=== PATIENT | female | born 1960 | race Caucasian/White ===

== ENCOUNTER 2021-05-20 06:31 | Day surgery (SDC) | payer BC, SELFPAY ==
[2021-05-13 12:25] VITALS: BMI 30.2
[2021-05-20 06:38] VITALS: BP 130/72; PULSE 63; RESP 16; TEMP 37.3; O2SAT 95
[2021-05-20] MEDS: Lactated Ringers 1,000 ML 80 ML IVCONT (06:49)
--- NOTE | 2021-05-20 07:30 | HO.ANESPROP2 ---
HPI - Anesthesia Eval Consult details Narrative: 60 F for colonoscopy [facility] Past Medical History Medical History (Updated 05/13/21 @ 12:29 by Evelin Salvador RN) Arthritis Bone spur of left foot Hx of cardiac murmur Hx of skin cancer, basal cell Seasonal allergies Family History Family history of problems with anesthesia: No Surgical History Surgical History (Updated 05/13/21 @ 12:22 by Evelin Salvador RN) History of shoulder surgery Hx of colonoscopy History of Problems with Anesthesia: No Social History Social History Patient Tobacco Use Status: Former Tobacco user Quit Date: Tobacco use type: Cigarette Use of substances other than those prescribed or required for medical reasons: No Are you DNR?: No Advance Directives: No Advance Directives Information Provided: Yes Advance Directives on File: No Meds Allergies Allergy/AdvReac Type Severity Reaction Status Date / Time No Known Allergies Allergy Unverified 05/19/21 12:47 Active Medications: Current Medications Sodium Biphosphate/Sodium Phosphate (Sodium Phosphate,[place]-Dibasic 133 Ml Enema) 133 ml MS ONCE PRN PRN Reason: Poor Colonoscopy Prep Results Home Medications Medication Instructions Recorded Confirmed Last Taken Type Tylenol Arthritis Pain 05/13/21 05/13/21 Unknown History ibuprofen PRN 05/13/21 05/13/21 Unknown History loratadine 10 mg tablet 10 mg PO DAILY 05/13/21 05/13/21 Unknown History multivitamin 1 tab PO DAILY 05/13/21 05/13/21 Unknown History Exam Exam Date and Time: May 20, 2021 0730 Height,Weight and Vital Signs: Height 5 ft 6 in Weight 84.822 kg Last Vital Signs Temp 99.1 F 05/20/21 06:38 Pulse 63 05/20/21 06:38 Resp 16 05/20/21 06:38 BP 130/72 05/20/21 06:38 Pulse Ox 95 05/20/21 06:38 Airway Mallampati Class: III Loose/Missing/Broken Teeth: Yes ([place] ) Heart: rrr Lungs: bl breath sounds Assessment and Plan Assessment Anesthesia Assessment: Anesthesia Plan Discussed Final Anesthetic Review Family History of Problems with Anesthesia: No History of Problems with Anesthesia: No NPO: Yes ASA Class: II Final Preanesthetic Review: Meds/Allgs Chart Reviewed and Anes Risks/Benef Reviewed Patient Risk: Intermediate Procedure Risk: Intermediate Anesthetic Plan Anesthetic Plan: MAC: Disposition: Standard PACU
[2021-05-20 08:21] VITALS: BP 112/58; PULSE 77; RESP 16; TEMP 36.7; O2SAT 96
--- NOTE | 2021-05-20 08:21 | PM.OP ---
Brief Operative Note Date of Service: 05/20/21 Pre-op diagnosis: Screening Post-op diagnosis: other (Diverticulosis) Procedure: Colonoscopy to the cecum and TI Surgeon: Garfield Page Anesthesia: MAC Was an Magnetic Observer used for this Procedure?: No Estimated blood loss (mL): 0 Pathology: none sent Condition: stable Disposition: PACU
[2021-05-20 08:36] VITALS: BP 107/59; PULSE 63; RESP 6; TEMP 36.7; O2SAT 97
--- NOTE | 2021-05-20 09:49 | OP_ITS ---
SURGEON: Garfield Page MD INDICATIONS: The patient presents for evaluation of colorectal cancer screening. Full consent was obtained from her for this, including risks of bleeding and perforation. PREOPERATIVE DIAGNOSIS: Colorectal cancer screening. POSTOPERATIVE DIAGNOSIS: PROCEDURE PERFORMED: Colonoscopy to the cecum and terminal ileum. ESTIMATED BLOOD LOSS: COMPLICATIONS: ANESTHESIA: Monitored anesthesia care. ASSISTANTS: SPECIMENS: POSTOPERATIVE DIAGNOSES: Colorectal cancer screening, mild sigmoid diverticulosis, internal hemorrhoids. DESCRIPTION OF PROCEDURE: The patient was placed in the left lateral decubitus position. The digital rectal exam revealed no abnormalities. The Olympus video pediatric colonoscope was entered into the rectum and advanced easily to the cecum. Once in the cecum, I did identify normal-appearing cecal pouch with appendiceal orifice and a normal-appearing ileocecal valve. The terminal ileum was cannulated and appeared normal. The scope was withdrawn back in the colon. The entire cecum and ileocecal valve appeared normal. The scope was slowly withdrawn assessing all mucosal surfaces carefully. Preparation was excellent. I did not visualize any sign of polyps, colitis, or angiodysplasia. There was a mild amount of sigmoid diverticulosis. In the rectum, scope was retroflexed visualizing internal hemorrhoids, but no other pathology. The rectal mucosa appeared normal. The scope was straightened and withdrawn from the patient. She tolerated procedure well and was returned to the recovery area in stable condition. IMPRESSION: 1. Mild sigmoid diverticulosis. 2. Internal hemorrhoids. PLAN: Given the negative exam and negative family history, I would recommend a followup colonoscopy in 10 years for further screening. She will otherwise see me on a p.r.n. basis. MD DOUG Morris/EMILIANO / [id number]
== END 2021-05-20 09:00 | disposition home or self-care (01) ==
PROVIDERS: PCP Internal Medicine; Visit Provider Internal Medicine
PROC: 0DJD8ZZ Inspection of Lower Intestinal Tract, Via Natural or Artificial Opening Endoscopic (ICD-10-PCS; CPT 45378; principal; 2021-05-20 07:30)
DX: Z12.11 Encounter for screening for malignant neoplasm of colon (principal); K57.30 Diverticulosis of large intestine without perforation or abscess without bleeding; K64.8 Other hemorrhoids; M19.90 Unspecified osteoarthritis, unspecified site; Z79.1 Long term (current) use of non-steroidal anti-inflammatories (NSAID); Z79.899 Other long term (current) drug therapy; Z85.828 Personal history of other malignant neoplasm of skin; Z87.891 Personal history of nicotine dependence
CPT/HCPCS: 45378